=== PATIENT | female | born 1995 | race Caucasian/White ===

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

== ENCOUNTER 2017-04-20 15:39 | Observation (INO) | payer OTHER ==
[~2017-04-20] VITALS: Ht 162.6 cm; Wt 64.6 kg
[2017-04-20 16:08] LABS: BASOPHILS # (AUTO) 0.06 x10^3/uL (0-0.3); BASOPHILS % (AUTO) 1 % (0-1); EOSINOPHILS # (AUTO) 0.06 x10^3/uL (0-0.8); EOSINOPHILS % (AUTO) 1 % (1-7); LYMPHOCYTES # (AUTO) 1.82 x10^3/uL (1-6.1); LYMPHOCYTES % (AUTO) 19 % (22-44); MD NO; MEAN CORPUSCULAR HEMOGLOBIN 31.4 pg (27.0-34.8); MEAN CORPUSCULAR HGB CONC 33.7 g/dL (32.4-35.8); MEAN CORPUSCULAR VOLUME 93.4 fL (80-100); MEAN PLATELET VOLUME 7.9 fL (7.4-10.4); MONOCYTES % (AUTO) 5 % (2-9); NEUTROPHILS # (AUTO) 6.95 x10^3/uL (1.8-8.0); NEUTROPHILS % (AUTO) 74 % (42-75); PLATELET COUNT 311 x10^3/uL (130-400); RED BLOOD COUNT 4.71 x10^6/uL (3.82-5.3); RED CELL DISTRIBUTION WIDTH 13.6 % (9.6-15.2)
[2017-04-20 16:20] LABS: ACETAMINOPHEN < 2 mcg/mL (10-30); ALBUMIN 4.3 g/dL (3.4-5.0); ANION GAP 10 mmol/L (5-15); CALCIUM 8.7 mg/dL (8.5-10.1); CHLORIDE 107 mmol/L (98-107); CREATININE 0.86 mg/dL (0.55-1.02); SALICYLATE LEVEL < 1.7 mg/dL (2.8-20.0)
[2017-04-20 17:43] LABS: MICROSCOPIC INDICATED
[2017-04-20 17:52] LABS: CULTURE INDICATED? NO
[2017-04-20 17:58] LABS: AMPHETAMINE SCREEN, URINE Negative (Negative); BARBITURATE SCREEN, URINE Negative (Negative); BENZODIAZEPINE SCREEN, URINE Negative (Negative); CANNABINOID SCREEN, URINE Positive (Negative); COCAINE SCREEN, URINE Negative (Negative); METHADONE SCREEN, URINE Negative (Negative); OPIATE SCREEN, URINE Negative (Negative)
[2017-04-20] MEDS ORDERED: ACYC-114 PO (18:45)
[2017-04-20] MEDS ORDERED: IBUP-1222 PO (18:45)
[2017-04-20] MEDS ORDERED: ONDA4TAB7 PO (18:45)
[2017-04-21] MEDS ORDERED: ONDANSETRON ODT 4 MG PO PRN (01:00)
[2017-04-21] MEDS ORDERED: ZIPRASIDONE 20 MG INJ IM PRN (01:00)
[2017-04-21] MEDS ORDERED: BENZTROPINE 1 MG TABLET PO PRN (01:00)
[2017-04-21] MEDS ORDERED: DIPHENHYDRAMINE 50 MG CAPSULE PO PRN (01:00)
[2017-04-21 08:15] VITALS: BP 110/77
[2017-04-21] MEDS ORDERED: SENNA/DOCUSATE TABLET PO SCH (09:00)
[2017-04-21 11:57] LABS: HCG UR SG 1.024 (1.003-1.030)
== END 2017-04-21 15:37 ==
LOC: ED 16:22 → EDIP 22:48 → 2N 04-21 11:05
PROVIDERS: ADMIT Hospitalist; ATTEND Hospitalist
DX: F20.0 Paranoid schizophrenia (principal); F43.10 Post-traumatic stress disorder, unspecified; F12.90 Cannabis use, unspecified, uncomplicated; F10.10 Alcohol abuse, uncomplicated; F25.9 Schizoaffective disorder, unspecified; F33.2 Major depressive disorder, recurrent severe without psychotic features
CPT/HCPCS: 36415; 80048; 80307; 80329; 81001; 81025; 82040; 85025; 99285; G0378; G0480

== ENCOUNTER 2018-12-17 18:41 | Inpatient (IN) | payer OTHER ==
[~2018-12-17] VITALS: Ht 165.1 cm; Wt 68.8 kg
[~2018-12-17 18:41] MED LIST changes: +ACYC-114 PO; +IBUP-1222 PO; +ONDA4TAB7 PO
[2018-12-17] MEDS ORDERED: POLYETHYLENE GLYCOL 17 GM PACKET PO PRN (19:00)
[2018-12-17] MEDS ORDERED: ONDANSETRON ODT 4 MG PO PRN (19:00)
[2018-12-17] MEDS ORDERED: DOCUSATE 100 MG CAPSULE PO PRN (19:00)
[2018-12-17] MEDS ORDERED: BISACODYL 10 MG SUPP PR PRN (19:00)
[2018-12-17] MEDS ORDERED: PLEASE ENTER HEIGHT AND WEIGHT MC SCH (20:00)
[2018-12-17 20:02] VITALS: BP 123/86
[2018-12-17] MEDS ORDERED: HYDR50CA PO (20:28)
[2018-12-17] MEDS ORDERED: CHOL20002 PO (21:55)
[2018-12-17] MEDS ORDERED: PALI6TAB3 PO (21:55)
[2018-12-17] MEDS: HYDROXYZINE PAMOATE 50MG CAP PO PRN (22:30)
[2018-12-17 23:14] LABS: CHOL/HDL RATIO 2.6; CHOLESTEROL, TOTAL 150 mg/dL (140-239); FREE T4 (FREE THYROXINE) 0.75 ng/dL (0.76-1.46); HDL CHOL % 39 % (28-40); HDL CHOLESTEROL (DIRECT) 58 mg/dL (40-60); LDL CHOLESTEROL,CALCULATED 77 mg/dL (54-169); LDL/HDL RATIO 1.3 (0.5-3.0); TRIGLYCERIDES 75 mg/dL (50-200); VLDL CHOLESTEROL 15 mg/dL (0-25)
[2018-12-18 03:58] LABS: ALANINE AMINOTRANSFERASE 12 U/L (12-78); ALBUMIN 3.6 g/dL (3.4-5.0); ANION GAP 9 mmol/L (5-15); CALCIUM 8.7 mg/dL (8.5-10.1); CHLORIDE 107 mmol/L (98-107); CREATININE 0.81 mg/dL (0.55-1.02)
[2018-12-18 04:01] LABS: ALKALINE PHOSPHATASE 70 U/L (45-117); BILIRUBIN,TOTAL 0.2 mg/dL (0.2-1.0)
[2018-12-18 04:16] LABS: BASOPHILS # (AUTO) 0.03 x10^3/uL (0-0.1); BASOPHILS % (AUTO) 0 % (0-1); EOSINOPHILS # (AUTO) 0.05 x10^3/uL (0-0.4); EOSINOPHILS % (AUTO) 1 % (1-7); LYMPHOCYTES # (AUTO) 2.16 x10^3/uL (1-3.4); LYMPHOCYTES % (AUTO) 25 % (22-44); MD NO; MEAN CORPUSCULAR HEMOGLOBIN 31.6 pg (27.0-34.8); MEAN CORPUSCULAR HGB CONC 33.6 g/dL (32.4-35.8); MEAN CORPUSCULAR VOLUME 94.2 fL (80-100); MEAN PLATELET VOLUME 8.3 fL (7.4-10.4); MONOCYTES # (AUTO) 0.59 x10^3/uL (0.2-0.8); MONOCYTES % (AUTO) 7 % (2-9); NEUTROPHILS # (AUTO) 5.66 x10^3/uL (1.8-6.8); NEUTROPHILS % (AUTO) 67 % (42-75); PLATELET COUNT 281 x10^3/uL (130-400); RED BLOOD COUNT 4.29 x10^6/uL (3.82-5.3)
[2018-12-18] MEDS: HYDROXYZINE PAMOATE 50MG CAP PO PRN ×5 (04:47→21:04)
[2018-12-18 09:31] LABS: MICROSCOPIC NOT IND
[2018-12-18 09:32] LABS: CULTURE INDICATED? NO
[2018-12-18 09:51] LABS: AMPHETAMINE SCREEN, URINE Negative (Negative); BARBITURATE SCREEN, URINE Negative (Negative); BENZODIAZEPINE SCREEN, URINE Negative (Negative); CANNABINOID SCREEN, URINE Positive (Negative); COCAINE SCREEN, URINE Negative (Negative); METHADONE SCREEN, URINE Negative (Negative); OPIATE SCREEN, URINE Negative (Negative)
[2018-12-18] MEDS: LEVOTHYROXINE 50 MCG TABLET PO SCH (12:38)
[2018-12-18] MEDS: CHOLECALCIFEROL 1,000 UNIT TABLET PO SCH (12:38)
[2018-12-18] MEDS: ACYCLOVIR 400 MG TABLET PO SCH ×2 (12:38→21:04)
[2018-12-18] MEDS: ARIPIPRAZOLE 10 MG TABLET PO SCH (15:33)
[2018-12-18] MEDS: IBUPROFEN 600 MG TABLET PO SCH ×2 (15:33→21:08)
[2018-12-19] MEDS: HYDROXYZINE PAMOATE 50MG CAP PO PRN ×4 (04:08→20:09)
[2018-12-19] MEDS: ACETAMINOPHEN 325 MG TABLET PO PRN ×2 (04:13→12:29)
[2018-12-19] MEDS: LEVOTHYROXINE 50 MCG TABLET PO SCH (06:08)
[2018-12-19 08:00] VITALS: BP 112/79
[2018-12-19] MEDS: PALIPERIDONE 6 MG TAB.ER.24 PO SCH (08:37)
[2018-12-19] MEDS: IBUPROFEN 600 MG TABLET PO SCH ×3 (08:38→20:06)
[2018-12-19] MEDS: CHOLECALCIFEROL 1,000 UNIT TABLET PO SCH (08:38)
[2018-12-19] MEDS: ARIPIPRAZOLE 10 MG TABLET PO SCH (08:38)
[2018-12-19] MEDS: ACYCLOVIR 400 MG TABLET PO SCH ×2 (08:38→20:06)
[2018-12-19 09:30] LABS: BASOPHILS # (AUTO) 0.03 x10^3/uL (0-0.1); BASOPHILS % (AUTO) 0 % (0-1); EOSINOPHILS # (AUTO) 0.08 x10^3/uL (0-0.4); EOSINOPHILS % (AUTO) 1 % (1-7); LYMPHOCYTES # (AUTO) 1.89 x10^3/uL (1-3.4); LYMPHOCYTES % (AUTO) 28 % (22-44); MD NO; MEAN CORPUSCULAR HEMOGLOBIN 31.1 pg (27.0-34.8); MEAN CORPUSCULAR HGB CONC 33.7 g/dL (32.4-35.8); MEAN CORPUSCULAR VOLUME 92.3 fL (80-100); MEAN PLATELET VOLUME 7.6 fL (7.4-10.4); MONOCYTES # (AUTO) 0.41 x10^3/uL (0.2-0.8); MONOCYTES % (AUTO) 6 % (2-9); NEUTROPHILS # (AUTO) 4.35 x10^3/uL (1.8-6.8); NEUTROPHILS % (AUTO) 64 % (42-75); PLATELET COUNT 281 x10^3/uL (130-400); RED BLOOD COUNT 4.59 x10^6/uL (3.82-5.3); RED CELL DISTRIBUTION WIDTH 13.9 % (9.6-15.2)
[2018-12-19 10:30] VITALS: BP 112/79
[2018-12-19 20:00] VITALS: BP 118/77
[2018-12-20] MEDS: HYDROXYZINE PAMOATE 50MG CAP PO PRN ×5 (02:24→22:07)
[2018-12-20] MEDS: LEVOTHYROXINE 50 MCG TABLET PO SCH (05:16)
[2018-12-20 07:43] VITALS: BP 127/81
[2018-12-20] MEDS: IBUPROFEN 600 MG TABLET PO SCH ×3 (08:14→20:00)
[2018-12-20] MEDS: CHOLECALCIFEROL 1,000 UNIT TABLET PO SCH (08:14)
[2018-12-20] MEDS: PALIPERIDONE 6 MG TAB.ER.24 PO SCH (08:14)
[2018-12-20] MEDS: ARIPIPRAZOLE 10 MG TABLET PO SCH (08:14)
[2018-12-20] MEDS: ACYCLOVIR 400 MG TABLET PO SCH ×2 (08:14→19:59)
[2018-12-20] MEDS: ACETAMINOPHEN 325 MG TABLET PO PRN (13:38)
[2018-12-20 19:27] VITALS: BP 118/78
[2018-12-21] MEDS: HYDROXYZINE PAMOATE 50MG CAP PO PRN ×5 (02:51→21:41)
[2018-12-21] MEDS: LEVOTHYROXINE 50 MCG TABLET PO SCH (05:35)
[2018-12-21 07:13] VITALS: BP 113/72
[2018-12-21] MEDS: PALIPERIDONE 6 MG TAB.ER.24 PO SCH (08:10)
[2018-12-21] MEDS: CHOLECALCIFEROL 1,000 UNIT TABLET PO SCH (08:10)
[2018-12-21] MEDS: ACYCLOVIR 400 MG TABLET PO SCH ×2 (08:10→20:16)
[2018-12-21] MEDS: ARIPIPRAZOLE 10 MG TABLET PO SCH (08:10)
[2018-12-21] MEDS: IBUPROFEN 600 MG TABLET PO SCH ×3 (08:10→20:16)
[2018-12-21] MEDS ORDERED: ARIPIPRAZOLE 5 MG TABLET PO ONE (15:35)
[2018-12-21] MEDS ORDERED: ARIPIPRAZOLE 5 MG TABLET ONE (15:40)
[2018-12-21] MEDS: ACETAMINOPHEN 325 MG TABLET PO PRN (15:41)
[2018-12-21 19:43] VITALS: BP 113/70
[2018-12-22] MEDS: LEVOTHYROXINE 50 MCG TABLET PO SCH (05:41)
[2018-12-22] MEDS: HYDROXYZINE PAMOATE 50MG CAP PO PRN ×4 (05:41→19:45)
[2018-12-22 07:15] VITALS: BP 108/67
[2018-12-22] MEDS: ACYCLOVIR 400 MG TABLET PO SCH ×2 (09:24→19:45)
[2018-12-22] MEDS: ARIPIPRAZOLE 15 MG TABLET PO SCH (09:24)
[2018-12-22] MEDS: CHOLECALCIFEROL 1,000 UNIT TABLET PO SCH (09:24)
[2018-12-22] MEDS: IBUPROFEN 600 MG TABLET PO SCH ×3 (09:24→19:45)
[2018-12-22] MEDS: PALIPERIDONE 6 MG TAB.ER.24 PO SCH (09:25)
[2018-12-22 19:20] VITALS: BP 112/77
[2018-12-23] MEDS: HYDROXYZINE PAMOATE 50MG CAP PO PRN ×5 (02:48→23:53)
[2018-12-23] MEDS: LEVOTHYROXINE 50 MCG TABLET PO SCH (05:14)
[2018-12-23 07:33] VITALS: BP 125/81
[2018-12-23] MEDS: CHOLECALCIFEROL 1,000 UNIT TABLET PO SCH (08:27)
[2018-12-23] MEDS: PALIPERIDONE 6 MG TAB.ER.24 PO SCH (08:27)
[2018-12-23] MEDS: IBUPROFEN 600 MG TABLET PO SCH ×3 (08:28→20:21)
[2018-12-23] MEDS: ARIPIPRAZOLE 15 MG TABLET PO SCH (08:28)
[2018-12-23] MEDS: ACYCLOVIR 400 MG TABLET PO SCH ×2 (08:28→20:21)
[2018-12-23 19:15] VITALS: BP 119/79
[2018-12-24] MEDS: HYDROXYZINE PAMOATE 50MG CAP PO PRN ×4 (04:17→17:25)
[2018-12-24] MEDS: LEVOTHYROXINE 50 MCG TABLET PO SCH (05:35)
[2018-12-24 07:10] VITALS: BP 138/83
[2018-12-24] MEDS: CHOLECALCIFEROL 1,000 UNIT TABLET PO SCH (08:14)
[2018-12-24] MEDS: ARIPIPRAZOLE 15 MG TABLET PO SCH (08:14)
[2018-12-24] MEDS: PALIPERIDONE 6 MG TAB.ER.24 PO SCH (08:14)
[2018-12-24] MEDS: ACYCLOVIR 400 MG TABLET PO SCH (08:15)
[2018-12-24] MEDS: IBUPROFEN 600 MG TABLET PO SCH ×2 (08:15→16:00)
[2018-12-24] MEDS ORDERED: HYDR50CA2 PO (09:04)
[2018-12-24] MEDS ORDERED: PALI6TAB5 PO (09:04)
[2018-12-24] MEDS ORDERED: CHOL10003 PO (09:04)
[2018-12-24] MEDS ORDERED: LEVO50TA PO (09:04)
[2018-12-24] MEDS ORDERED: ARIP15TA3 PO (09:04)
== END 2018-12-24 17:45 | disposition home or self-care (01) | DRG 885 ==
LOC: 3E 19:43
PROVIDERS: ADMIT Psychiatry & Neurology Psychosomatic Medicine; ATTEND Psychiatry & Neurology Psychosomatic Medicine
DX: F25.0 Schizoaffective disorder, bipolar type (principal); F42.9 Obsessive-compulsive disorder, unspecified; F43.10 Post-traumatic stress disorder, unspecified; G89.29 Other chronic pain; L30.9 Dermatitis, unspecified; E03.9 Hypothyroidism, unspecified; F17.200 Nicotine dependence, unspecified, uncomplicated; Z79.890 Hormone replacement therapy; Z82.5 Family history of asthma and other chronic lower respiratory diseases; Z82.49 Family history of ischemic heart disease and other diseases of the circulatory system
CPT/HCPCS: 36415; 71045; 80053; 80061; 80307; 81003; 82140; 82607; 84439; 84443; 84703; 85025; 93005